=== PATIENT | female | born 1995 | race Caucasian/White ===

== ENCOUNTER 2017-03-01 12:43 | Emergency (ER) | payer OTHER ==
[~2017-03-01] VITALS: Ht 154.9 cm; Wt 80.0 kg
[2017-03-01 12:49] VITALS: Ht 154.9 cm; Wt 80.0 kg
[2017-03-01] MEDS ORDERED: LORA-186 PO (14:21)
[2017-03-01] MEDS ORDERED: ERYTOPOI BOTH EYES (14:21)
[2017-03-01] MEDS ORDERED: IBUP400T22 PO (14:21)
[2017-03-01] MEDS ORDERED: PHEN118L PO (14:21)
--- NOTE | 2017-03-01 15:13 | ERD ---
ER Documentation Chief Complaint Date/Time DATE: 03/01/17 TIME: 15:10 Chief Complaint SORE THROAT AND YELLOW CRUST OVER EYES X 4 DAYS HPI This is a 21-year-old female presenting to the emergency department complaining of a sore throat for the past 4 days. Patient states that it feels itchy and she rates the it mild severity. Patient also admits to having a mild cough, rest the elbow redness in her eyes that occurred throughout the day in the past 4 days. Patient states that she has not tried any medications for this. She denies any shortness of breath or chest pain ROS All systems reviewed and are negative except as per history of present illness. Medications Home Meds Active Scripts Erythromycin* (Erythromycin* Ophthalmic) 1 Applic Oint, 1 APPLIC BOTH EYES QID for 7 Days, EA Prov:WHITLEY BOSE PA-C 03/01/17 Phenylephrine/Diphenhydramine (DIMETAPP COLD & CONGEST LIQUID) 118 Ml Liquid, 5 ML PO Q4H Y for COUGH, #4 OZ Prov:WHITLEY BOSE PA-C 03/01/17 Loratadine* (Claritin*) 10 Mg Tablet, 10 MG PO DAILY, #30 TAB Prov:WHITLEY BOSE PA-C 03/01/17 Ibuprofen* (Motrin*) 400 Mg Tab, 400 MG PO Q6H Y for PAIN AND OR ELEVATED TEMP, #30 TAB Prov:WHITLEY BOSE PA-C 03/01/17 Allergies Allergies: Coded Allergies: hydroxyzine (Unverified Allergy, Unknown, RASH, 03/01/17) Physical Exam Vitals Vital Signs Date Time Temp Pulse Resp B/P Pulse Ox O2 Delivery O2 Flow Rate FiO2 03/01/17 12:49 98.6 89 18 116/57 100 Physical Exam GENERAL: well-developed/well-nourished, in no apparent distress, non-toxic appearing HEAD: NC/AT, no swelling noted in frontal or maxillary areas EARS: bilateral tympanic membrane is intact without erythema or effusion NARES: nares patent THROAT: oropharynx nnoerythematous without exudates, no tonsil enlargement, post nasal drip EYES: Conjunctiva normal NECK: Supple, no lymphadenopathy PULM: CTA bilaterally, no rales, rhonchi, or wheezing heard CV: Normal S1S2, RRR, good capillary refill GI: Soft, non-distended, normal bowel sounds, non-tender BACK: No midline tenderness, no masses EXT No clubbing, cyanosis, or edema NEURO: Alert and Orientated SKIN: Intact, normal turgor PSYCH: Normal mood and mentation Procedures/MDM 21-year-old female presenting to the emergency department with a chief complaint of a sore throat and yellow crustiness in her eyes for the past 4 days which is likely due to a viral upper respiratory infection. There was no evidence of strep pharyngitis, retropharyngeal abscess, peritonsillar abscess, otitis media or pneumonia. On examination patient had clear conjunctiva, this is likely a viral conjunctivitis however I discussed with her will empirically treat for a bacterial conjunctivitis with erythromycin abdominal ointment the next 7 days. I have given her a prescription for ibuprofen and Claritin and Dimetapp. Discussed to return to the ER for any worsening signs. Patient understands and angry with this plan discharge home Departure Diagnosis: Primary Impression: URI (upper respiratory infection) Condition: Stable Patient Instructions: Uri, Viral, No Abx (Adult) Additional Instructions: FOLLOW UP WITH YOUR PRIMARY CARE PHYSICIAN TOMORROW.Return to this facility if you are not improving as expected. Take all medicines as directed. Return to this facility if you are not improving as expected. WHITLEY BOSE PA-C March 01, 2017 15:13
== END 2017-03-01 14:23 | disposition home or self-care (01) ==
LOC: E/R 12:43
DX: J06.9 Acute upper respiratory infection, unspecified (principal)
CPT/HCPCS: 99283